=== PATIENT | male | born 1960 | race Caucasian/White ===

== ENCOUNTER 2019-01-11 11:34 | Day surgery (SDC) | payer BC ==
[2019-01-06 16:24] VITALS: BMI 25.0
[~2019-01-11 11:34] MED LIST: LACTATED RINGERS 1,000 ML IV SCH
[2019-01-11 12:21] VITALS: TEMP 98.8
[2019-01-11] MEDS ORDERED: LIDOCAINE 1% 20 ML VIAL (10MG/ML) FOR IV START INTRADERMA ONE (12:29)
[2019-01-11] MEDS ORDERED: PROPOFOL 10 MG/ML 20 ML VIAL IV ONE (12:38)
[2019-01-11] MEDS ORDERED: LIDOCAINE 1% INJ 10MG/ML (20 ML MDV) ONE (12:38)
--- NOTE | 2019-01-11 13:24 | P.PCN ---
Preoperative Diagnosis: BRIEF HISTORY: Patient is a 58-year-old pleasant male scheduled for an elective colonoscopy as a part of screening for malignant neoplasm colon. No prior colonoscopies reported. Patient denies any change in bowel habits, abdominal pain or blood per rectum. PROCEDURE PERFORMED: Colonoscopy with polypectomy and biopsy and tattoo. PREOPERATIVE DIAGNOSIS: Screening for malignant neoplasm of the colon, no prior colonoscopy reported. ESTIMATED BLOOD LOSS: Minimal. IV sedation per Anesthesia. PROCEDURE: After informed consent was obtained, the patient, was brought into the endoscopy unit. IV sedation was administered by Anesthesia under continuous monitoring. Digital rectal examination was normal. Initially the Olympus CF-190 flexible video colonoscope was then inserted in the rectum, gradually advanced into the cecum without any difficulty. Careful examination was performed as the scope was gradually being withdrawn. Ileocecal valve and the appendiceal orifice were visualized and appeared normal. Prep was excellent. Mucosa of the cecum, ascending colon, transverse colon, descending colon, sigmoid colon, and rectum appeared normal. Diminutive 3 mm ascending colon polyp removed with cold forcep polypectomy. Diminutive 2 mm rectal polyp removed with cold forcep polypectomy. There was a 3-4 cm mass at the hepatic flexure unclear if large polyp or malignancy which was biopsied with tattoo placed adjacent to the mass and just distal to the mass. Retroflexion was performed in the rectum and no lesions were seen. The patient tolerated the procedure well. IMPRESSION: 3-4 cm hepatic flexure mass biopsy to rule out malignancy with tattoo was placed adjacent and distal to the mass. 2 diminutive polyps removed from the ascending colon and rectum. RECOMMENDATIONS: Findings of this examination were discussed with the patient and his . Okay to resume diet. Await pathology from biopsies and polypectomy. Patient will need referral to either surgical service or advance endoscopy for further intervention pending pathology from biopsies.
[2019-01-11 13:39] VITALS: RESP 18
[2019-01-11 13:52] VITALS: BP 123/80; PULSE 84
== END 2019-01-11 14:32 | disposition home or self-care (01) ==
LOC: ORWHC2ENDO 11:34
PROVIDERS: ATTEND Internal Medicine
DX: Z12.11 Encounter for screening for malignant neoplasm of colon (principal); D12.2 Benign neoplasm of ascending colon; D12.3 Benign neoplasm of transverse colon; D12.8 Benign neoplasm of rectum; I10 Essential (primary) hypertension; K21.9 Gastro-esophageal reflux disease without esophagitis; Z79.82 Long term (current) use of aspirin; Z79.899 Other long term (current) drug therapy; Z87.891 Personal history of nicotine dependence; Z98.818 Other dental procedure status
CPT/HCPCS: 45380; 45381; 88305; J2001; J2704; 44404

== ENCOUNTER 2023-04-02 09:39 | Day surgery (SDC) | payer BC, OTHER ==
[~2023-04-02 09:39] MED LIST changes: +HYDROmorphone 0.5 MG/0.5 ML SYRINGE IVP PRN
[2023-04-02 11:10] VITALS: TEMP 97.4
[2023-04-02] MEDS ORDERED: PROPOFOL 10 MG/ML 20 ML VIAL IV ONE (11:30)
[2023-04-02] MEDS ORDERED: LIDOCAINE 1% INJ 10MG/ML (20 ML MDV) ONE (11:30)
--- NOTE | 2023-04-02 11:47 | P.PCN ---
Date of Procedure: 04/02/23 Procedure(s) Performed: BRIEF HISTORY: Patient is a 62-year-old pleasant white male scheduled for an elective colonoscopy as a part of surveillance of large colon polyp that was noted in the 2019. He subsequently underwent colonoscopy with endoscopic mucosal resection in March 2019 of the hepatic flexure polyp at [facility]. He scheduled for follow-up colonoscopy today. PROCEDURE PERFORMED: Colonoscopy with biopsy. PREOPERATIVE DIAGNOSIS: History of colon polyps. IV sedation per Anesthesia. PROCEDURE: After informed consent was obtained, the patient, was brought into the endoscopy unit. IV sedation was administered by Anesthesia under continuous monitoring. Digital rectal examination was normal. Initially the Olympus CF-160 flexible video colonoscope was then inserted in the rectum, gradually advanced into the cecum without any difficulty. Careful examination was performed as the scope was gradually being withdrawn. Ileocecal valve and the appendiceal orifice were visualized and appeared normal. Prep was excellent. Mucosa of the cecum, ascending colon, appeared normal. In the hepatic flexure the site of previous endoscopic mucosal resection of the large polyp there was no residual polyp identified. Rest of the transverse colon, descending colon, sigmoid colon, and rectum appeared normal. In the proximal rectum there were 20 mm polyp that was removed by cold biopsy Retroflexion was performed in the rectum and no lesions were seen. The patient tolerated the procedure well. IMPRESSION: 3 mm proximal rectal polyps status post cold biopsy No residual polyp noted in the hepatic flexure area at the site of previous polypectomy Recommendations: Findings of this examination were discussed with the patient as well as his family. He was advised to follow with the biopsy doesn't have a repeat colonoscopy in 5 years..
[2023-04-02 12:01] VITALS: RESP 16
[2023-04-02 12:26] VITALS: BP 123/86; PULSE 79
== END 2023-04-02 12:15 | disposition home or self-care (01) ==
LOC: ORWHC2ENDO 09:39
PROVIDERS: ATTEND Internal Medicine Gastroenterology
DX: Z12.11 Encounter for screening for malignant neoplasm of colon (principal); K62.1 Rectal polyp; I10 Essential (primary) hypertension; F10.90 Alcohol use, unspecified, uncomplicated; Z79.82 Long term (current) use of aspirin; Z86.010 Personal history of colon polyps; Z79.899 Other long term (current) drug therapy
CPT/HCPCS: 45380; J2001; J2704; 88305